=== PATIENT | female | born 1950 | race Caucasian/White ===

== ENCOUNTER 2019-05-12 12:35 | Observation (INO) | payer MEDICARE, BC ==
[~2019-05-12] VITALS: Ht 154.9 cm; Wt 40.4 kg
[~2019-05-12 12:35] MED LIST: ACE3 PO; ALP5 PO; IBUP-1455 PO; [UNRECOGNIZED DRUG - OTHER]
--- NOTE | 2019-05-12 12:38 | ER Report ---
History and Physical Time Seen By MD: 12:33 HPI/ROS CHIEF COMPLAINT: Diffuse abdominal pain, nausea HISTORY OF PRESENT ILLNESS: Patient is a 68-year-old female here with complaints of diffuse abdominal pain since this morning, decreased appetite. Patient does have history of prior bowel obstructions, recent history of endoscopy which showed some gastric erosion. Patient denies chest pains but does report having subjective fever. Last oral intake was this morning chest for medications however last meal was last night. Patient is prior history of appendectomy, cholecystectomy. Last bowel movement was shortly prior to arrival REVIEW OF SYSTEMS: Constitutional: + fever, no chills. Eyes: No discharge. ENT: No sore throat. Cardiovascular: No chest pain, no palpitations. Respiratory: No cough, no shortness of breath. Gastrointestinal: + Diffuse abdominal pain, no vomiting. + Nausea Genitourinary: No hematuria. Musculoskeletal: No back pain. Skin: No rashes. Neurological: No headache. Allergies: Uncoded Allergies: INTERNAL IODINE (Allergy, Mild, HIVES, 08/16/09) Home Meds Reported Medications Fexofenadine Hcl (QUYEN ALLERGY) 60 Mg Tablet, 60 MG PO BID 05/12/19 Lisinopril (LISINOPRIL) 10 Mg Tablet, 10 MG PO QDAY, TAB 05/12/19 Biotin (Biotin) 1,000 Mcg Tab.chew 05/12/19 Ibuprofen (Ibuprofen M) 200 Mg Tablet, 200 MG PO TID, 0 Refills 08/19/09 [[place]] No Conflict Check, 0 Refills 08/16/09 Alprazolam (Xanax) 0.5 Mg Tab, 0.5 MG PO BID, 0 Refills 08/16/09 Discontinued Reported Medications Acetaminophen/Codeine (Tylenol #3 300-30 Mg) 1 Ea Tab, 1 EA PO Q4H, #30 0 Refills 1-2 TABLETS EVERY 4 HOURS NEEDED FOR PAIN 08/19/09 Constitutional Vital Sign - Last 24 Hours 05/12/19 12:44 Temp 98.3 Pulse 83 Resp 96 B/P (MAP) 191/95 Pulse Ox 12 O2 Delivery Room Air Physical Exam General Appearance: The patient is alert, has no immediate need for airway protection and no signs of toxicity. Uncomfortable appearing Eyes: Pupils equal and round no pallor or injection. ENT, Mouth: Mucous membranes are moist. Respiratory: There are no retractions, lungs are clear to auscultation. Cardiovascular: Regular rate and rhythm. Gastrointestinal: Abdomen is soft and diffusely tender, no rebound or guarding present, bowel sounds hyperactive Neurological: No focal neurological deficits Skin: Warm and dry, no rashes. Musculoskeletal: Neck is supple non tender. Extremities are nontender, nonswollen and have full range of motion. DIFFERENTIAL DIAGNOSIS: After history and physical exam differential diagnosis was considered for abdominal pain including but not limited to appendicitis, cholecystitis, gastritis and urinary tract infection. Bowel obstruction Medical Decision Making Data Points Result Diagram: 05/12/19 1301 05/12/19 1301 Laboratory Hematology Test 05/12/19 13:01 White Blood Count 8.0 k/uL (4.5-11.0) Red Blood Count 3.84 M/uL (4.17-5.56) L Hemoglobin 13.9 g/dL (12.0-16.0) Hematocrit 39.1 % (34.0-47.0) Mean Corpuscular Volume 102.0 fL (80.0-96.0) H Mean Corpuscular Hemoglobin 36.1 pg (26.0-33.0) H Mean Corpuscular Hemoglobin Concent 35.4 g/dL (32.0-36.0) Red Cell Distribution Width 12.5 % (11.5-14.5) Platelet Count 212 K/uL (150-450) Mean Platelet Volume 7.7 fL (7.2-11.1) Neutrophils (%) (Auto) 82.2 % (39.4-72.5) H Lymphocytes (%) (Auto) 12.4 % (17.6-49.6) L Monocytes (%) (Auto) 4.9 % (4.1-12.4) Eosinophils (%) (Auto) 0.1 % (0.4-6.7) L Basophils (%) (Auto) 0.4 % (0.3-1.4) Nucleated RBC Relative Count (auto) 0.0 /100WBC Neutrophils # (Auto) 6.6 K/uL (2.0-7.4) Lymphocytes # (Auto) 1.0 K/uL (1.3-3.6) L Monocytes # (Auto) 0.4 K/uL (0.3-1.0) Eosinophils # (Auto) 0.0 K/uL (0.0-0.5) Basophils # (Auto) 0.0 K/uL (0.0-0.1) Nucleated RBC Absolute Count (auto) 0.00 K/uL Chemistry Test 05/12/19 13:01 Sodium Level 131 mmol/L (137-145) Potassium Level 3.9 mmol/L (3.5-5.0) Chloride Level 96 mmol/L (98-107) Carbon Dioxide Level 24 mmol/L (22-31) Blood Urea Nitrogen 14 mg/dl (7-18) Creatinine 0.80 mg/dl (0.52-1.04) Glomerular Filtration Rate Calc > 60.0 Random Glucose 106 mg/dl (75-110) Lactate 1.5 mmol/L (0.7-2.1) Calcium Level 9.0 mg/dl (8.4-10.2) Total Bilirubin 0.6 mg/dl (0.2-1.3) Aspartate Amino Transf (AST/SGOT) 23 U/L (0-35) Alanine Aminotransferase (ALT/SGPT) 30 U/L (0-56) Alkaline Phosphatase 54 U/L (0-126) Total Protein 7.0 g/dl (6.3-8.2) Albumin 4.0 g/dl (3.5-5.0) Lipase 58 U/L (23-300) Coagulation Test 05/12/19 13:01 Prothrombin Time 12.0 seconds (12.0-14.4) Prothromb Time International Ratio 0.89 Activated Partial Thromboplast Time 25 seconds (23-35) Urinalysis Test 05/12/19 12:37 Urine Color Yellow Urine Clarity Clear Urine pH 7.0 pH (4.8-9.5) Urine Specific Auxier 1.012 Urine Protein Negative mg/dL (NEGATIVE) Urine Glucose (UA) Negative mg/dL (NEGATIVE) Urine Ketones Trace mg/dL (NEGATIVE) Urine Blood Negative (NEGATIVE) Urine Nitrite Negative (NEGATIVE) Urine Bilirubin Negative (NEGATIVE) Urine Urobilinogen Negative mg/dL (0.2-1.9) Urine Leukocyte Esterase Negative (NEGATIVE) Urine RBC 1 /HPF (0-2/HPF) Urine WBC 1 /HPF (0-5/HPF) Urine Squamous Epithelial Cells Many /LPF (</=FEW) Urine Bacteria Few /HPF (NONE-FEW) Urine Mucus None /HPF (NONE-FEW) EKG/Imaging Imaging Please see official radiology report. Early small bowel obstruction in the distal small bowel was identified. ED Course/Re-evaluation ED Course Patient is a 68-year-old female here with complaints of diffuse abdominal pain, nausea since this morning with decreased appetite. Patient does report having prior history of appendectomy, cholecystectomy, bowel obstructions 2. Patient does have recent history of an endoscopy which showed mild gastric erosion, patient is on pantoprazole for treatment. Patient was given fentanyl initially for analgesia, Dilaudid for repeat dosing. Patient was initially bolused 1 L normal saline, 2nd liter ordered. CT imaging identified an early small bowel obstruction in the distal small bowel likely as the transition. Patient's labs were unremarkable with no leukocytosis, lactate was normal. NG tube was placed. I discussed the patient with Dr. Rollins who accepted the patient to the surgery service. Patient was hemodynamically stable at time of admission. Decision to Disposition Date: May 12, 2019 Decision to Disposition Time: 14:20 Depart Departure Latest Vital Signs Vital Signs Date Time Temp Pulse Resp B/P (MAP) Pulse Ox O2 Delivery O2 Flow Rate FiO2 05/12/19 12:44 98.3 83 96 191/95 12 Room Air Impression: Primary Impression: Small bowel obstruction Condition: Improved Disposition: Admitted from ER Referrals: CHARLENE ODELL MD (PCP) TADEO BIRCH DO May 12, 2019 12:38
[2019-05-12] MEDS ORDERED: NS(*) 0.9% 1000 ML BAG 1,000 ML IV ONE ×2 (12:53→14:50)
[2019-05-12] MEDS ORDERED: fentaNYL CITR 100 MCG/2 ML AMP IVP ONE (12:55)
[2019-05-12] MEDS ORDERED: ONDANSETRON 4 MG/2 ML VIAL IVP ONE (12:55)
[2019-05-12 13:21] LABS: PLATELET COUNT, AUTOMATED 212 K/uL (150-450)
[2019-05-12] MEDS ORDERED: IOPAMIDOL 76% 100 ML INFUS BTL 0 ML ONE (13:22)
[2019-05-12 13:23] LABS: INR 0.89
[2019-05-12] MEDS ORDERED: LISI-362 PO (13:55)
[2019-05-12] MEDS ORDERED: BIOT10004 (13:55)
[2019-05-12] MEDS ORDERED: FEXO-72 PO (13:55)
[2019-05-12] MEDS: HYDROMORPHONE HCL 1 MG/ML SYRINGE IVP ONE (14:13)
--- NOTE | 2019-05-12 14:21 | RADIOLOGY IMAGING REPORT ---
FACILITY: [facility] PATIENT NAME: Delta Velasquez : 1950 MR: [id number] V: [id number] EXAM DATE: ORDERING PHYSICIAN: TADEO BIRCH TECHNOLOGIST: Location: [facility] - [place] Patient: Delta Velasquez : 1950 Visit/Account:[id number] Date of Sevice: 05/12/2019 CT abdomen and pelvis without contrast Indication: Abdominal pain. Comparison: 08/16/2009. Technique: Axial CT images are obtained through the abdomen and pelvis. Reformatted coronal and sagit adrianna images were reviewed. IV contrast was not administered. One of the following dose optimization techniques was utilized in the performance of this exam: auto mated exposure control; adjustment of the mA and/or kV according to the patient's size; or use of an iterative reconstruction technique. Specific details can be referenced in the facility's radiology C T exam operational policy. Findings: Lower lung ferrera: Limited views lower lung field are unremarkable. Evaluation of the solid organs of the abdomen is limited without IV contrast. Liver: No focal parenchymal abnormality of the liver. Biliary: Status post costectomy. The common bile duct is again mildly dilated 8 mm which is stable. N o intraductal abnormality and tapers into the pancreatic head. This likely due to cholecystectomy. Pancreas: No focal normality. Spleen: Normal appearance. Adrenal glands: Unremarkable. Kidneys / retroperitoneum: No evidence of nephrolithiasis or hydronephrosis. No focal normality. Bowel / peritoneum / mesenteries: Colon shows no focal normality. The appendix is not definitely visu alized. There is mildly dilated loops of small bowel in the distal aspect and pelvis with fecalizatio n. The area of transition is in the distal ileum however discrete cause is not identified. No wall th ickening or focal abnormality. There is a small amount of mesenteric edema and free fluid in the pelv is. Stomach shows a small hiatal hernia and otherwise unremarkable. No other free fluid. No fluid collections, free air or areas of inflammation. Lymph node assessment: No pathologic adenopathy identified. Pelvic structures: Pelvic structures visualized within normal limits. Vessels: No significant atherosclerotic calcifications seen throughout a nonaneurysmal abdominal aort a and branches. Musculoskeletal / Body wall: No acute or aggressive osseous abnormality. There are mild degenerative change seen spine. Calcification within the L5 disc. IMPRESSION: 1. Early small bowel obstruction with mild dilatation the distal ileum with fecalization. Discrete ca use is not identified however there are transition of the distal ileum. Small amount of mesenteric ed mavis and free fluid in the pelvis. 2. Other chronic findings as above. I called report to TADEO BIRCH at 05/12/2019 2:10 PM. Report Dictated By: Reese Castellanos at 05/12/2019 1:57 PM Report E-Signed By: Reese Castellanos at 05/12/2019 2:13 PM WSN:[id number]
[2019-05-12] MEDS ORDERED: ONDANSETRON 4 MG/2 ML VIAL IVP PRN (15:10)
[2019-05-12] MEDS ORDERED: DIATRIZOATE MEGL/DIATRIZOA SOD 367 MG/ML SOLN PO ONE (15:10)
[2019-05-12] MEDS ORDERED: ACETAMINOPHEN 325 MG TAB PO PRN (15:10)
[2019-05-12] MEDS ORDERED: DIATRIZOATE MEGL/DIATRIZOA SOD 367 MG/ML SOLN ONE (15:22)
--- NOTE | 2019-05-12 15:24 | Gen Surgery History & Physical ---
History of Present Illness Chief Complaint crampy abdominal pain and nausea History of Present Illness This 68 year old female presented to [facility] ED today with crampy abdominal pain and nausea that started this am. She reports she felt fine yesterday. Shr has had past history of SBO x2 that required surgery. She feels that her symptoms today are similar to what she had experienced with those two previous episodes. She denies vomiting. She had a BM this morning and has passed flatus. She denies fever or chills. She denies dysuria. She did have a recent upper endoscopy by GI in [place] last week and was started on Prilosec for some gastric erosions. She denies melena or hematochezia. History Home Meds Reported Medications Fexofenadine Hcl (QUYEN ALLERGY) 60 Mg Tablet, 60 MG PO BID 05/12/19 Lisinopril (LISINOPRIL) 10 Mg Tablet, 10 MG PO QDAY, TAB 05/12/19 Biotin (Biotin) 1,000 Mcg Tab.chew 05/12/19 Ibuprofen (Ibuprofen M) 200 Mg Tablet, 200 MG PO TID, 0 Refills 08/19/09 [[place]] No Conflict Check, 0 Refills 08/16/09 Alprazolam (Xanax) 0.5 Mg Tab, 0.5 MG PO BID, 0 Refills 08/16/09 Discontinued Reported Medications Acetaminophen/Codeine (Tylenol #3 300-30 Mg) 1 Ea Tab, 1 EA PO Q4H, #30 0 Refills 1-2 TABLETS EVERY 4 HOURS NEEDED FOR PAIN 08/19/09 Allergies: Uncoded Allergies: INTERNAL IODINE (Allergy, Mild, HIVES, 08/16/09) Review of Systems All Systems Reviewed/Normal: Yes, Except as Noted Gastrointestinal: Nausea, Abdominal Pain Exam General Appearance: Alert, Awake, No Acute Distress, Afebrile Neuro: No Gross deficits Eyes: PERRLA ENT: Moist Mucous Membranes Neck: No Masses Cardiovascular: Normal Rhythm & Peripheral Pulses Respiratory: No Respiratory Distress, Clear to Auscultation GI: Abd Soft and Non-Tender (Bowel sounds present) Extremities: Soft and Non Tender Psych: Alert & Oriented X3 Medical Decision Making Data Points Result Diagram: 05/12/19 1301 05/12/19 1301 Assessment and Plan Problems: (1) Small bowel obstruction Status: Acute Assessment & Plan: 05/12/19: Will admit, NPO, IVF's, gastrografin SBFT. Time Spent: > 30 min Venous Thromboembolism VTE Risk Patient's VTE Risk: Low VTE Diagnostic Test 2 Days Prior to Admit: No Antithrombotics Is Pt On Any Antithrombotics?: No Prophylaxis Tx Contraindicated Pharmacological Contraindicati: Pt at Low Risk for VTE Mechanical Contraindications: Pt at Low Risk for VTE MATTEO GARNER MD May 12, 2019 15:24
[2019-05-12 16:02] VITALS: BP 172/86
[2019-05-12] MEDS ORDERED: OMEP-218 PO (16:18)
[2019-05-12] MEDS: LR(*) 1000 ML BAG 1,000 ML IV PRN (16:34)
--- NOTE | 2019-05-12 18:23 | General Surgery Progress Note ---
Subjective Progress Notes Subjective Resting comfortably Physical Exam Vital Signs Date Time Temp Pulse Resp B/P (MAP) Pulse Ox O2 Delivery O2 Flow Rate FiO2 05/12/19 16:16 85 05/12/19 16:02 98.8 86 16 172/86 (114) Nasal Cannula 0.5 General Appearance: Alert, Awake, No Acute Distress, Afebrile Neuro: No Gross deficits Eyes: PERRLA ENT: Moist Mucous Membranes Cardiovascular: Normal Rhythm & Peripheral Pulses Respiratory: No Respiratory Distress, Clear to Auscultation GI: Soft and Non-Tender (Bowel sounds present) Psych: Alert & Oriented X3 Result Diagram: 05/12/19 1301 05/12/19 1301 Assessment and Plan Problems: (1) Small bowel obstruction Status: Acute Assessment & Plan: 05/12/19: Will admit, NPO, IVF's, gastrografin SBFT. 05/12/19: SBFT in progress with contrast to colon in 2 hours. No BM yet. Patient encouraged to get OOB and ambulate. Time Spent: < 30 min Exam Sepsis Risk: No Definite Risk MATTEO GARNER MD May 12, 2019 18:23
[2019-05-12 20:02] VITALS: BP 152/86
--- NOTE | 2019-05-12 22:31 | RADIOLOGY IMAGING REPORT ---
FACILITY: [facility] PATIENT NAME: Delta Velasquez : 1950 MR: [id number] V: [id number] EXAM DATE: ORDERING PHYSICIAN: TADEO BIRCH TECHNOLOGIST: Location: [facility] Patient: Delta Velasquez : 1950 Visit/Account:[id number] Date of Sevice: 05/12/2019 XR SMALL BOWEL SERIES HISTORY: Small bowel obstruction COMPARISON: None TECHNIQUE: 120 mL of Gastrografin was administered orally. FINDINGS: A preliminary film of the abdomen reveals a nonobstructive bowel gas pattern. Immediate images after the administration of Gastrografin demonstrates that the stomach is opacified. There is no abnormali ty of the stomach identified. All of the visualized small bowel loops exhibit normal caliber and contour. No abnormal separation o f small bowel loops. The large bowel is unremarkable in appearance. There is no evidence of extralumi nal contrast. IMPRESSION: Normal small bowel follow through. There is no evidence of small bowel obstruction. Report Dictated By: Jomar Bose at 05/12/2019 10:20 PM Report E-Signed By: Jomar Bose at 05/12/2019 10:24 PM WSN:[id number]
[2019-05-12 23:17] VITALS: BP 144/73
[2019-05-13] MEDS: LR(*) 1000 ML BAG 1,000 ML IV PRN (00:08)
[2019-05-13 03:32] VITALS: BP 141/66
[2019-05-13 06:02] LABS: PLATELET COUNT, AUTOMATED 195 K/uL (150-450)
[2019-05-13 07:05] VITALS: BP 155/71
--- NOTE | 2019-05-13 08:10 | General Surgery Progress Note ---
Subjective Progress Notes Subjective Feeling much better, had several BM's and passing flatus. Physical Exam Vital Signs Date Time Temp Pulse Resp B/P (MAP) Pulse Ox O2 Delivery O2 Flow Rate FiO2 05/13/19 07:05 98.7 70 16 155/71 (99) 98 Nasal Cannula 1.0 Intake and Output 05/13/19 07:03 Intake Total 2800 ml Balance 2800 ml Intake IV Total 2800 ml # Voids 2 General Appearance: Alert, Awake, No Acute Distress, Afebrile Neuro: No Gross deficits ENT: Moist Mucous Membranes Cardiovascular: Normal Rhythm & Peripheral Pulses Respiratory: No Respiratory Distress, Clear to Auscultation GI: Soft and Non-Tender (Bowel sounds normoactive) Extremities: Soft and Non Tender Psych: Alert & Oriented X3 Result Diagram: 05/13/19 0540 05/13/19 0540 Assessment and Plan Problems: (1) Small bowel obstruction Status: Acute Assessment & Plan: 05/12/19: Will admit, NPO, IVF's, gastrografin SBFT. 05/12/19: SBFT in progress with contrast to colon in 2 hours. No BM yet. Patient encouraged to get OOB and ambulate. 05/13/19: Feeling much better, had several Bm's and passing flatus, tolerating liquids. Will DC home. Instructed to follow up with her GI physician. I instructed her to remain on a low residue diet. No uncooked vegetables or fruit. She should stay on her Miralax daily and drink plenty of water. Time Spent: < 30 min Exam Sepsis Risk: No Definite Risk MATTEO GARNER MD May 13, 2019 08:10
--- NOTE | 2019-05-13 08:19 | Hospitalist Depart ---
Discharge Summary Reason for Hosp/Final Diag: (1) Small bowel obstruction Status: Acute Hospital Course & Plan: 05/12/19: Will admit, NPO, IVF's, gastrografin SBFT. 05/12/19: SBFT in progress with contrast to colon in 2 hours. No BM yet. Patient encouraged to get OOB and ambulate. 05/13/19: Feeling much better, had several Bm's and passing flatus, tolerating liquids. Will DC home. Instructed to follow up with her GI physician. I instructed her to remain on a low residue diet. No uncooked vegetables or fruit. She should stay on her Miralax daily and drink plenty of water. Departure Weight (Pounds): 89 Result Diagram: 05/13/1953905/13/19539 Condition: Improved Discharge Instructions Home Meds Reported Medications Omeprazole Magnesium (PRILOSEC OTC) 20 Mg Tablet.dr, 2 TAB PO QDAY, TAB 05/12/19 Fexofenadine Hcl (QUYEN ALLERGY) 60 Mg Tablet, 60 MG PO BID 05/12/19 Lisinopril (LISINOPRIL) 10 Mg Tablet, 10 MG PO QDAY, TAB 05/12/19 Biotin (Biotin) 1,000 Mcg Tab.chew 05/12/19 Ibuprofen (Ibuprofen M) 200 Mg Tablet, 200 MG PO TID, 0 Refills 08/19/09 [[place]] No Conflict Check, 0 Refills 08/16/09 Alprazolam (Xanax) 0.5 Mg Tab, 0.5 MG PO BID, 0 Refills 08/16/09 Discontinued Reported Medications Acetaminophen/Codeine (Tylenol #3 300-30 Mg) 1 Ea Tab, 1 EA PO Q4H, #30 0 Refills 1-2 TABLETS EVERY 4 HOURS NEEDED FOR PAIN 08/19/09 Diet: Mechanical Soft (low residue diet) Activity: As Tolerated Venous Thromboembolism Antithrombotics Is Pt On Any Antithrombotics?: No MATTEO GARNER MD May 13, 2019 08:19
[2019-05-13] MEDS ORDERED: PANTOPRAZOLE SOD 40 MG TABEC PO SCH (09:00)
--- NOTE | 2019-05-13 10:05 | Medical Nutrition Therapy ---
Nutrition Anthropometrics Height (Inches): 61.00 Height (Calculated Centimeters: 154.553397 Weight (Pounds): 89 Weight (Calculated Kilograms): 40.370 BMI: 16.8 Candido Nutrition Score: Very Poor Candido Nutrition Risk Score: 16 Dietary Referral Nutrition Risk Factors: Nutrition Risk Comment: N/A Physical Findings Physical Appearance: Underweight BMI<19 Skin Appearance Skin Appearance: Edema Edema Location Modifier: Edema Location: Type of Edema: Degree of Edema: Gastrointestinal Symptoms GI Symtoms: Nausea Tube Present: Bowel Sounds: Recent Bowel Pattern: Stool Characteristics: Nutrition/Food History Alcohol Use: Currently, Occassional Nutritional Diagnosis Nutritional Risk Acuity 1: GI Obstruction Nutritional Acuity: 1-High Nutrition Diagnosis: Altered GI Function Nutrition Etiology: Physiological Causes Nutrition Problem/Etiology/Sym: SBO Energy Requirement: 1379 (MSJ (AF 1.6)) Protein Requirement: 48 (1g/kg (Using IBW of 105 lbs)) Fluid Requirement: 1500 Diet Type: Medical Liquid/GI soft Nutrition Intervention: Cont diet as ordered, Teaching Do Not Serve Any of the Follow: Broccoli, Brussel Sprouts, Spinach, [place]clusky Lettuce Nutritional Education Nutrition Education Topic: Other Learning Readiness: Eager Teaching Methods: Discussion, Handout Response to Teaching: Return demonstration, Verbalize understanding Teaching Recipient: Patient, Significant Other Nutrition Monitoring & Eval Nutrition Goals: Eat 75-100% Meal Nutrition Follow-Up: Poor Intake RD Patient Assessment Time: [address] Assessment Type: RD Assessment Patient Nutrition Acuity: 1-High Follow Up Date: May 16, 2019 Nutritional Comment: 05/13/19-Spoke with pt and significant other this am. Pt admit for SBO. Provided pt with handout on low fiber diet. Reviewed appropriate foods. Recommended pt follow diet for ~6 weeks and follow up with her floor helper for diet advancement to a moderate fiber diet. Encouraged pt to call with questions.ELIZA YIP May 13, 2019 10:05
== END 2019-05-13 09:13 | disposition home or self-care (01) ==
LOC: ER 12:38 → INTOOBSV 14:37 → MED 14:37
PROVIDERS: ADMIT Surgery; ATTEND Surgery
DX: K56.609 Unspecified intestinal obstruction, unspecified as to partial versus complete obstruction (principal)
CPT/HCPCS: 36415; 74176; 74250; 81001; 83605; 83690; 85025; 85610; 85730; 86140; 96361; 96374; 96375; 99284; A9270; G0378; J1170; J2405; J3010; J7030; J7120; 82040; 82247; 82310; 82374; 82435; 82565; 82947; 84075; 84132; 84155; 84295; 84450; 84460; 84520; Q9967